=== PATIENT | male | born 1965 | race Caucasian/White ===

== ENCOUNTER → 2019-02-27 | Day surgery (SDC) | payer OTHER ==
[2019-02-25 11:36] LABS: BASOPHILS % 0.5 % (0.0-1.0); EOSINOPHILS # (AUTO) 0.4 (0.0-0.4); EOSINOPHILS % 5.6 % (0.0-6.0); HEMATOCRIT 40.9 % (38.2-49.6); LYMPHOCYTES # (AUTO) 2.5 (1.0-3.2); LYMPHOCYTES % 32.2 % (18.0-39.1); MEAN CORPUSCULAR HGB CONC 34.2 g/dL (31-35); MEAN CORPUSCULAR VOLUME 87.8 fL (81-99); MONOCYTES # (AUTO) 0.5 (0.2-0.8); NEUTROPHILS # (AUTO) 4.2 (2.1-6.9); NEUTROPHILS % 54.3 % (38.7-80.0); PLATELET COUNT 205 x10e3/uL (140-360); RED BLOOD COUNT 4.66 x10e6/uL (4.3-5.7); RED CELL DISTRIBUTION WIDTH 12.3 % (11.7-14.4)
[2019-02-25 11:57] LABS: ANION GAP 11.9 mmol/L (8-16); BLOOD UREA NITROGEN 14 mg/dL (7-26); BUN/CREATININE RATIO 18 (6-25); CARBON DIOXIDE 25 mmol/L (22-29); CHLORIDE 104 mmol/L (98-107); CREATININE, SERUM 0.77 mg/dL (0.72-1.25); EST GLOMERULAR FILTRATION RATE > 60 ML/MIN (60-); GLUCOSE 118 mg/dL (74-118); POTASSIUM 3.9 mmol/L (3.5-5.1); SODIUM 137 mmol/L (136-145)
[~2019-02-27] MED LIST: FENTANYL CITRATE/PF 100MCG/2 ML INJ ONE; LIDOCAINE HCL 2% LOCAL INJ 5 ML SDV VIAL INJ ONE; MIDAZOLAM HCL 2 MG/2 ML VIAL ONE; PROPOFOL IV EMULSION 10 MG/ML 20 ML VIAL ONE; ULTRAM 50MG50 MG PO
--- OUTSIDE RECORDS SUMMARY | 2019-02-27 05:33 | XMS REPORT | Summary of Care ---
Author Organization Unknown Address Unknown Phone Unavailable Encounter HQ Tashar_colinsudhakar([facility]) [id number] Date(s): 11/04/14 - 12/03/14 [facility] Discharge Disposition: Home Physician Attending: Guido Ch DO Vital Signs No data available for this section Problem List No data available for this section Allergies, Adverse Reactions, Alerts No data available for this section Medications No data available for this section Results No data available for this section Immunizations No data available for this section Procedures No data available for this section Social History No data available for this section Assessment and Plan No data available for this section
--- OUTSIDE RECORDS SUMMARY | 2019-02-27 05:33 | XMS REPORT | Continuity of Care Document ---
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 Role Phone [facility] Unavailable Unavailable Problems Problem Status Onset Date Classification Date Reported Comments Source UNK Active 03/08/2016 [facility] Discharge Diagnosis: Pain in right wrist 03/06/2016 03/09/2016 [facility] POST SURGERY PAIN Active 03/06/2016 [facility] Bilateral inguinal hernia Resolved Problem 07/16/2016 [facility] Bone spur Resolved Problem 07/16/2016 [facility] Partial tear of ligament1 Active Problem 07/16/2016 right wrist [facility] ANKLE Active [facility] RT HAND Active [facility] RT KNEE STIFFNESS Active [facility] Medications Medication Details Route Status Patient Instructions Ordering Provider Order Date Source Ketorolac 30 mg, Route: IVP, Q6H, Dosing Weight 94.5, kg, Start date: 03/16/16 12:00:00 CDT, Duration: 6 doses or times, Stop date: 03/17/16 18:00:00 CDT Inactive 03/16/2016 [facility] Naloxone 0.4 mg, Route: IVP, Q2MIN, Dosing Weight 94.5, kg, PRN Narcotic Reversal, Start date: 03/16/16 11:20:00 CDT, Duration: 8 doses or times, Stop date: Limited # of times Inactive 03/16/2016 [facility] Ondansetron 4 mg, Route: IVP, ONCE, Dosing Weight 94.5, kg, PRN Nausea & Vomiting, Start date: 03/16/16 11:20:00 CDT Inactive 03/16/2016 [facility] Oxycodone 5 mg, Route: PO, Drug form: TAB, Q4H, Dosing Weight 94.5, kg, PRN Pain Score 4-6, Start date: 03/16/16 11:20:00 CDT, Duration: 30 day, Stop date: 04/15/16 11:19:00 CDT Inactive 03/16/2016 [facility] Hydromorphone 0.5 mg, Route: IVP, Q5Min, Dosing Weight 94.5, kg, PRN Pain Score 7-10, Start date: 03/16/16 11:20:00 CDT, Duration: 4 doses or times, Stop date: Limited # of times Inactive 03/16/2016 [facility] Fentanyl 25 microgram, Route: IVP, Q5Min, Dosing Weight 94.5, kg, PRN Pain Score 4-6, Start date: 03/16/16 11:20:00 CDT, Duration: 4 doses or times, Stop date: Limited # of times Inactive 03/16/2016 [facility] Flumazenil 0.2 mg, Route: IVP, PRN, Dosing Weight 94.5, kg, PRN Benzodiazepine Reversal, Initial dose, Start date: 03/16/16 11:20:00 CDT, Duration: 30 day, Stop date: 04/15/16 11:19:00 CDT Inactive 03/16/2016 [facility] Labetalol 10 mg, Route: IVP, Q5Min, Dosing Weight 94.5, kg, PRN Elevated BP, Start date: 03/16/16 11:20:00 CDT, Duration: 5 doses or times, Stop date: Limited # of times Inactive 03/16/2016 [facility] Acetaminophen 1,000 mg, Route: IVPB, Drug form: INJ, ONCE, Dosing Weight 94.5, kg, PRN Pain Score 1-3, Start date: 03/16/16 11:20:00 CDT, Duration: 1 doses or times, Stop date: Limited # of times Inactive 03/16/2016 [facility] Acetaminophen 650 mg, Route: PO, Drug form: TAB, Q4H, Dosing Weight 94.5, kg, PRN Pain 1-3/Temp > 100.4 F, Start date: 03/16/16 11:16:00 CDT, Duration: 30 day, Stop date: 04/15/16 11:15:00 CDT Inactive 03/16/2016 [facility] Tramadol 50 mg, Route: PO, Drug form: TAB, Q6H, Dosing Weight 94.5, kg, PRN Pain Score 1-3, Start date: 03/16/16 11:16:00 CDT, Duration: 30 day, Stop date: 04/15/16 11:15:00 CDT Inactive 03/16/2016 [facility] Hydromorphone 0.5 mg, Route: IVP, Q3H, Dosing Weight 94.5, kg, PRN Pain Score 4-6, Start date: 03/16/16 11:16:00 CDT, Duration: 30 day, Stop date: 04/15/16 11:15:00 CDT Inactive 03/16/2016 [facility] Acetaminophen 325 MG / Hydrocodone Bitartrate 10 MG Oral Tablet 1 tab, Route: PO, Dosing Weight 94.5, kg, Q4H, PRN Pain Score 4-6, Start date: 03/16/16 11:16:00 CDT, Duration: 30 day, Stop date: 04/15/16 11:15:00 CDT Inactive 03/16/2016 [facility] ketOROLAC (ANES) IV, ONCE Inactive 03/16/2016 [facility] acetaminophen (ANES) Route: IV, Drug form: INJ, ONCE, Stop date: 03/16/16 10:45:00 CDT Inactive 03/16/2016 [facility] ondansetron (ANES) Route: IV, Drug form: INJ, ONCE, Stop date: 03/16/16 10:45:00 CDT Inactive 03/16/2016 [facility] hydromorphone (ANES) Route: IV, Drug form: INJ, ONCE, Stop date: 03/16/16 10:25:00 CDT Inactive 03/16/2016 [facility] fentaNYL (ANES) Route: IV, Drug form: INJ, ONCE, Stop date: 03/16/16 10:20:00 CDT Inactive 03/16/2016 [facility] lidocaine (ANES) Route: IV, Drug form: INJ, ONCE, Stop date: 03/16/16 10:20:00 CDT Inactive 03/16/2016 [facility] propofol (ANES) Route: IV, Drug form: INJ, ONCE, Stop date: 03/16/16 10:20:00 CDT Inactive 03/16/2016 [facility] ceFAZolin (ANES) Route: IV, Drug form: INJ, ONCE, Stop date: 03/16/16 10:20:00 CDT Inactive 03/16/2016 [facility] midazolam (ANES) Route: IV, Drug form: SOLN, ONCE, Stop date: 03/16/16 10:10:00 CDT Inactive 03/16/2016 [facility] LR 1000 mL INJ (ANES) Route: IV, Total Volume: 1,000, Start date: 03/16/16 9:38:00 CDT, Stop date: 03/16/16 10:38:00 CDT Inactive 03/16/2016 [facility] Ancef 2 gm, 100 mL, Route: IVPB, Drug form: INJ, ONCE, Dosing Weight 94.5, kg, Start date: 03/16/16 8:00:00 CDT, Duration: 1 doses or times, Stop date: 03/16/16 8:00:00 CDTNotes: Same as: Ancef Inactive 03/16/2016 [facility] Calcium Chloride 0.0014 MEQ/ML / Potassium Chloride 0.004 MEQ/ML / Sodium Chloride 0.103 MEQ/ML / Sodium Lactate 0.028 MEQ/ML Injectable Solution 1,000 mL, Rate: 25 ml/hr, Infuse over: 40 hr, Route: IV, Dosing Weight 94.5 kg, Total Volume: 1,000, Start date: 03/16/16 7:58:00 CDT, Duration: 30 day, Stop date: 04/15/16 7:57:00 CDT Inactive 03/16/2016 [facility] Diazepam 5 MG Oral Tablet [Valium] 5 mg=1 tab, PO, QID, PRN Spasm, # 30 tab, 0 Refill(s) Active 03/16/2016 [facility] Cephalexin 500 MG Oral Capsule [Keflex] 500 mg=1 cap, PO, QID, X 10 day, # 40 cap, 0 Refill(s) Active 03/16/2016 [facility] Acetaminophen 325 MG / Hydrocodone Bitartrate 7.5 MG Oral Tablet [[place] 7.5/325] 1 tab, PO, Q6H, 0 Refill(s) Active 03/09/2016 [facility] Ketorolac Tromethamine 10 MG Oral Tablet 10 mg=1 tab, PO, Q6H, X 5 day, # 20 tab, 0 Refill(s) Active 03/06/2016 [facility] Morphine 6 mg, Route: IM, Drug form: INJ, ONCE, Dosing Weight 92.727, kg, Priority: STAT, Start date: 03/06/16 6:16:00 CDT, Stop date: 03/06/16 6:16:00 CDT Inactive 03/06/2016 [facility] Ketorolac 30 mg, Route: IM, Drug form: INJ, ONCE, Dosing Weight 92.727, kg, Priority: STAT, Start date: 03/06/16 6:15:00 CDT, Stop date: 03/06/16 6:15:00 CDT Inactive 03/06/2016 [facility] Morphine 4 mg, Route: IM, Drug form: INJ, ONCE, Dosing Weight 92.727, kg, Priority: STAT, Start date: 03/06/16 6:09:00 CDT, Stop date: 03/06/16 6:09:00 CDT Inactive 03/06/2016 [facility] Morphine 4 mg, Route: IM, Drug form: INJ, ONCE, Dosing Weight 92.727, kg, Priority: STAT, Start date: 03/06/16 4:11:00 CDT, Stop date: 03/06/16 4:11:00 CDT Inactive 03/06/2016 [facility] Ketorolac 30 mg, Route: IVP, Q6H, Dosing Weight 96.364, kg, Start date: 02/11/16 12:00:00 CDT, Duration: 6 doses or times, Stop date: 02/12/16 18:00:00 CDT Inactive 02/11/2016 [facility] Eszopiclone 3 MG Oral Tablet [Lunesta] 3 mg=1 tab, PO, Bedtime, PRN for insomnia, # 30 tab, 0 Refill(s) Active 02/11/2016 [facility] Diazepam 5 MG Oral Tablet [Valium] 5 mg=1 tab, PO, QID, PRN Spasm, # 30 tab, 0 Refill(s) Active 02/11/2016 [facility] tramadol hydrochloride 50 MG Oral Tablet [Ultram] 50 mg=1 tab, PO, Q4H, PRN for pain, X 10 day, # 60 tab, 0 Refill(s) Active 02/11/2016 [facility] Ondansetron 4 mg, Route: IVP, ONCE, Dosing Weight 96.364, kg, PRN Nausea & Vomiting, Start date: 02/11/16 8:29:00 CDT Inactive 02/11/2016 [facility] Flumazenil 0.2 mg, Route: IVP, PRN, Dosing Weight 96.364, kg, PRN Benzodiazepine Reversal, Initial dose, Start date: 02/11/16 8:29:00 CDT, Duration: 30 day, Stop date: 03/12/16 8:28:00 CDT Inactive 02/11/2016 [facility] Naloxone 0.4 mg, Route: IVP, Q2MIN, Dosing Weight 96.364, kg, PRN Narcotic Reversal, Start date: 02/11/16 8:29:00 CDT, Duration: 8 doses or times, Stop date: Limited # of times Inactive 02/11/2016 [facility] Fentanyl 25 microgram, Route: IVP, Q5Min, Dosing Weight 96.364, kg, PRN Pain Score 4-6, Start date: 02/11/16 8:29:00 CDT, Duration: 4 doses or times, Stop date: Limited # of times Inactive 02/11/2016 [facility] Hydromorphone 0.5 mg, Route: IVP, Q5Min, Dosing Weight 96.364, kg, PRN Pain Score 7-10, Start date: 02/11/16 8:29:00 CDT, Duration: 4 doses or times, Stop date: Limited # of times Inactive 02/11/2016 [facility] Oxycodone 10 mg, Route: PO, Drug form: TAB, Q4H, Dosing Weight 96.364, kg, PRN Pain Score 7-10, Start date: 02/11/16 8:29:00 CDT, Duration: 30 day, Stop date: 03/12/16 8:28:00 CDT Inactive 02/11/2016 [facility] Acetaminophen 1,000 mg, Route: IVPB, Drug form: INJ, ONCE, Dosing Weight 96.364, kg, PRN Pain Score 1-3, Start date: 02/11/16 8:29:00 CDT, Duration: 1 doses or times, Stop date: Limited # of times Inactive 02/11/2016 [facility] Labetalol 10 mg, Route: IVP, Q5Min, Dosing Weight 96.364, kg, PRN Elevated BP, Start date: 02/11/16 8:29:00 CDT, Duration: 5 doses or times, Stop date: Limited # of times Inactive 02/11/2016 [facility] Tramadol 50 mg, Route: PO, Drug form: TAB, Q6H, Dosing Weight 96.364, kg, PRN Pain Score 1-3, Start date: 02/11/16 8:18:00 CDT, Duration: 30 day, Stop date: 03/12/16 8:17:00 CDT Inactive 02/11/2016 [facility] Acetaminophen 650 mg, Route: PO, Drug form: TAB, Q4H, Dosing Weight 96.364, kg, PRN Pain 1-3/Temp > 100.4 F, Start date: 02/11/16 8:18:00 CDT, Duration: 30 day, Stop date: 03/12/16 8:17:00 CDT Inactive 02/11/2016 [facility] Hydromorphone 0.5 mg, Route: IVP, Q3H, Dosing Weight 96.364, kg, PRN Pain Score 4-6, Start date: 02/11/16 8:18:00 CDT, Duration: 30 day, Stop date: 03/12/16 8:17:00 CDT Inactive 02/11/2016 [facility] Acetaminophen 325 MG / Hydrocodone Bitartrate 10 MG Oral Tablet 1 tab, Route: PO, Dosing Weight 96.364, kg, Q4H, PRN Pain Score 4-6, Start date: 02/11/16 8:18:00 CDT, Duration: 30 day, Stop date: 03/12/16 8:17:00 CDT Inactive 02/11/2016 [facility] fentaNYL (ANES) Route: IV, Drug form: INJ, ONCE, Stop date: 02/11/16 8:15:00 CDT Inactive 02/11/2016 [facility] propofol (ANES) Route: IV, Drug form: INJ, ONCE, Stop date: 02/11/16 8:00:00 CDT Inactive 02/11/2016 [facility] lidocaine (ANES) Route: IV, Drug form: INJ, ONCE, Stop date: 02/11/16 8:00:00 CDT Inactive 02/11/2016 [facility] ceFAZolin (ANES) Route: IV, Drug form: INJ, ONCE, Stop date: 02/11/16 8:00:00 CDT Inactive 02/11/2016 [facility] ondansetron (ANES) Route: IV, Drug form: INJ, ONCE, Stop date: 02/11/16 8:00:00 CDT Inactive 02/11/2016 [facility] Ancef 2 gm, Route: IVPB, ONCALL, Dosing Weight 96.364, kg, Start date: 02/11/16 8:00:00 CDT, Duration: 30 day, Stop date: 03/12/16 7:59:00 CDT Inactive 02/11/2016 [facility] ropivacaine (ANES) Route: NERVE BLOCK, Drug Form: INJ, ONCE, Stop date: 02/11/16 7:55:00 CDT Inactive 02/11/2016 [facility] LR 1000 mL INJ (ANES) Route: IV, Total Volume: 1,000, Start date: 02/11/16 7:13:00 CDT, Stop date: 02/11/16 8:13:00 CDT Inactive 02/11/2016 [facility] Calcium Chloride 0.0014 MEQ/ML / Potassium Chloride 0.004 MEQ/ML / Sodium Chloride 0.103 MEQ/ML / Sodium Lactate 0.028 MEQ/ML Injectable Solution 1,000 mL, Rate: 25 ml/hr, Infuse over: 40 hr, Route: IV, Dosing Weight 96.364 kg, Total Volume: 1,000, Start date: 02/11/16 7:05:00 CDT, Duration: 30 day, Stop date: 03/12/16 7:04:00 CDT Inactive 02/11/2016 [facility] Cephalexin 500 MG Oral Capsule [Keflex] 500 mg=1 cap, PO, QID, X 10 day, # 40 cap, 0 Refill(s) Active 02/11/2016 [facility] Allergies, Adverse Reactions, Alerts No Known Medication Allergies Immunizations No Data Provided for This Section Results Order Name Results Value Reference Range Date Interpretation Comments Source HEMATOLOGY Platelet 202 133 - 450 03/09/2016 [facility] HEMATOLOGY RDW 12.5 11.5 - 14.5 03/09/2016 [facility] HEMATOLOGY MPV 8.4 7.4 - 10.4 03/09/2016 [facility] HEMATOLOGY MCHC 33.8 32.0 - 36.0 03/09/2016 [facility] HEMATOLOGY MCH 30.0 27.0 - 31.0 03/09/2016 [facility] HEMATOLOGY MCV 88.7 80.0 - 94.0 03/09/2016 [facility] HEMATOLOGY RBC 4.64 4.70 - 6.10 03/09/2016 [facility] HEMATOLOGY Hct 41.2 42.0 - 54.0 03/09/2016 [facility] HEMATOLOGY Hgb 13.9 14.0 - 18.0 03/09/2016 [facility] HEMATOLOGY WBC 6.8 3.7 - 10.4 03/09/2016 [facility] HEMATOLOGY Lymphocytes 24.5 20.0 - 40.0 03/09/2016 [facility] HEMATOLOGY Segs 63.9 45.0 - 75.0 03/09/2016 [facility] HEMATOLOGY Basophils # 0.1 0.0 - 0.2 03/09/2016 [facility] HEMATOLOGY Eosinophils # 0.4 0.0 - 0.5 03/09/2016 [facility] HEMATOLOGY Monocytes # 0.4 0.0 - 0.8 03/09/2016 [facility] HEMATOLOGY Lymphocytes # 1.7 1.0 - 5.5 03/09/2016 [facility] HEMATOLOGY Segs-Bands # 4.4 1.5 - 8.1 03/09/2016 [facility] HEMATOLOGY Basophils 0.8 0.0 - 1.0 03/09/2016 [facility] HEMATOLOGY Eosinophils 5.4 0.0 - 4.0 03/09/2016 [facility] HEMATOLOGY Monocytes 5.4 2.0 - 12.0 03/09/2016 [facility] HEMATOLOGY MPV 8.3 7.4 - 10.4 02/04/2016 [facility] HEMATOLOGY Hgb 16.1 14.0 - 18.0 02/04/2016 [facility] HEMATOLOGY RBC 5.41 4.70 - 6.10 02/04/2016 [facility] HEMATOLOGY Hct 48.3 42.0 - 54.0 02/04/2016 [facility] HEMATOLOGY MCH 29.7 27.0 - 31.0 02/04/2016 [facility] HEMATOLOGY MCV 89.4 80.0 - 94.0 02/04/2016 [facility] HEMATOLOGY Platelet 206 133 - 450 02/04/2016 [facility] HEMATOLOGY RDW 12.9 11.5 - 14.5 02/04/2016 [facility] HEMATOLOGY MCHC 33.2 32.0 - 36.0 02/04/2016 [facility] HEMATOLOGY WBC 9.2 3.7 - 10.4 02/04/2016 [facility] HEMATOLOGY Monocytes # 0.5 0.0 - 0.8 02/04/2016 [facility] HEMATOLOGY Lymphocytes # 2.5 1.0 - 5.5 02/04/2016 [facility] HEMATOLOGY Eosinophils 2.5 0.0 - 4.0 02/04/2016 [facility] Segs-Bands # 5.9 1.5 - 8.1 02/04/2016 [facility] HEMATOLOGY Basophils 0.6 0.0 - 1.0 02/04/2016 [facility] HEMATOLOGY Monocytes 5.4 2.0 - 12.0 02/04/2016 [facility] HEMATOLOGY Lymphocytes 27.5 20.0 - 40.0 02/04/2016 [facility] Segs 64.0 45.0 - 75.0 02/04/2016 [facility] Basophils # 0.1 0.0 - 0.2 02/04/2016 [facility] HEMATOLOGY Eosinophils # 0.2 0.0 - 0.5 02/04/2016 [facility] Pathology Reports No Data Provided for This Section Diagnostic Reports Report Value Date Source Wrist complete DX Patient Name: FUNMILAYO EDWARDS : 1965; Age: 50 years y/o Male MR: [id number] * RIGHT WRIST, 3 views HISTORY: Right Wrist Pain of Unknown Origin; Technique: Frontal, oblique, and lateral radiographs of the right wrist were obtained. Intraoperative images of the right wrist of 02/11/2016 were reviewed. IMPRESSION: 1. The patient had a pin placed across the scaphoid and lunate on 02/11/2016. 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 The procedure was performed by Dr. Guido Ch. 2. There appears to be a change from the postoperative study as the tip of the pin previously was in the lower portion of the scaphoid bone. The tip of the pin now lies immediately adjacent to the proximal scaphoid bone. Apparently, the pin has backed out. 3. There is a relatively large gap between the scaphoid and lunate consistent with ligamentous instability. This has increased from the postoperative study. 4. No acute fracture or other acute abnormalities. 5. There are no destructive lesions to suggest osteomyelitis. 6. Referral to the treating orthopedic surgeon is highly recommended. ELY: MISSAEL 03/06/2016 [facility] Wrist 2 views DX Intraoperative C-arm spots of the right wrist with stress views show widening of the scaphoradial and scapholunate joints during ulnar stress. Pin fixation of the scapholunate joint is demonstrated on the final images. ELY [id number] 02/11/2016 [facility] Consultation Notes No Data Provided for This Section Discharge Summaries No Data Provided for This Section History and Physicals No Data Provided for This Section Vital Signs Vital Sign Value Date Comments Source Systolic (mm Hg) 124 03/16/2016 [facility] Diastolic (mm Hg) 74 03/16/2016 [facility] Respitory Rate 12 03/16/2016 [facility] Respitory Rate 11 03/16/2016 [facility] Systolic (mm Hg) 129 03/16/2016 [facility] Diastolic (mm Hg) 81 03/16/2016 [facility] Respitory Rate 11 03/16/2016 [facility] Systolic (mm Hg) 124 03/16/2016 [facility] Diastolic (mm Hg) 86 03/16/2016 [facility] Heart Rate 79 03/09/2016 [facility] Temperature Oral (F) 98.1 F 03/09/2016 [facility] BMI Calculated 28.26 03/09/2016 [facility] Weight 94.5 03/09/2016 [facility] Height 182.88 cm 03/09/2016 [facility] Respitory Rate 19 03/06/2016 [facility] Temperature Oral (F) 98 F 03/06/2016 [facility] Systolic (mm Hg) 125 03/06/2016 [facility] Diastolic (mm Hg) 72 03/06/2016 [facility] Heart Rate 85 03/06/2016 [facility] Heart Rate 78 03/06/2016 [facility] Temperature Oral (F) 98 F 03/06/2016 [facility] Systolic (mm Hg) 107 03/06/2016 [facility] Diastolic (mm Hg) 66 03/06/2016 [facility] Respitory Rate 18 03/06/2016 [facility] Temperature Oral (F) 98 F 03/06/2016 [facility] Heart Rate 87 03/06/2016 [facility] Respitory Rate 19 03/06/2016 [facility] Systolic (mm Hg) 132 03/06/2016 [facility] Diastolic (mm Hg) 80 03/06/2016 [facility] Weight 92.727 03/06/2016 [facility] Height 182.88 cm 03/06/2016 [facility] BMI Calculated 27.73 03/06/2016 [facility] Systolic (mm Hg) 135 02/11/2016 [facility] Diastolic (mm Hg) 64 02/11/2016 [facility] Systolic (mm Hg) 135 02/11/2016 [facility] Diastolic (mm Hg) 77 02/11/2016 [facility] Respitory Rate 14 02/11/2016 [facility] Systolic (mm Hg) 138 02/11/2016 [facility] Diastolic (mm Hg) 97 02/11/2016 [facility] Respitory Rate 13 02/11/2016 [facility] Respitory Rate 15 02/11/2016 [facility] Temperature Oral (F) 97.7 F 02/04/2016 [facility] Heart Rate 66 02/04/2016 [facility] Height 182.88 cm 02/04/2016 [facility] BMI Calculated 28.81 02/04/2016 [facility] Weight 96.364 02/04/2016 [facility] Encounters Location Location Details Encounter Type Encounter Number Reason For Visit Attending Provider ADM Date DC Date Status Source [facility] OP Therapy Patients [id number] Guido Ch 11/04/2014 12/04/2014 [facility] OBS Day Surgery [id number] Guido Ch 02/11/2016 02/11/2016 [facility] [id number] Darlin Zhang 03/06/2016 03/06/2016 [facility] OBS Day Surgery [id number] Guido Ch 03/16/2016 03/16/2016 [facility] OP Therapy Patients [id number] Guido Ch 05/12/2016 06/11/2016 [facility] OP Therapy Patients [id number] Guido Ch 06/14/2016 07/14/2016 [facility] Procedures Procedure Code Date Perfomer Comments Source Arthroscopy of knee [id number] [facility] Fasciotomy foot<sup>1</sup> [id number] with bone spur excision [facility] Laparoscopic bilateral repair of inguinal hernia with prosthesis or graft [id number] [facility] Arthroscopy of knee [id number] [facility] Discharge from hand surgery service [id number] [facility] Fasciotomy foot<sup>1</sup> [id number] with bone spur excision [facility] Laparoscopic bilateral repair of inguinal hernia with prosthesis or graft [id number] [facility] Discharge from hand surgery service [id number] [facility] Assessment and Plan No Data Provided for This Section Plan of Care No Data Provided for This Section Social History Social History Date Source Social History TypeResponse Alcohol Current1 Smoking Status Former smoker; Exposure to Tobacco Smoke None; Cigarette Smoking Last 365 Days No; Reg Smoking Cessation Counseling No 1rare 02/04/2016 [facility] Social History TypeResponse Alcohol Current1 Smoking Status Former smoker; Exposure to Tobacco Smoke None; Cigarette Smoking Last 365 Days No; Reg Smoking Cessation Counseling No 1rare 02/04/2016 [facility] Family History No Data Provided for This Section Advance Directives No Data Provided for This Section Functional Status No Data Provided for This Section
--- OUTSIDE RECORDS SUMMARY | 2019-02-27 05:34 | XMS REPORT | Summary of Care ---
Author Author [facility] Unknown Phone Unavailable Encounter HQ Junaid_jenaro(FIN) [id number] Date(s): 06/14/16 - 07/13/16 [facility] Discharge Disposition: Home or Self Care Attending Physician: Guido Ch Vital Signs No data available for this section Problem List Condition Effective Dates Status Health Status Informant Bilateral inguinal Resolved hernia(Confirmed) Bone spur(Confirmed) Resolved Partial tear of Active ligament(Confirmed)1 1right wrist Allergies, Adverse Reactions, Alerts Substance Reaction Severity Status NKDA Active Medications No data available for this section Results No data available for this section Immunizations No data available for this section Procedures Procedure Date Related Diagnosis Body Site Arthroscopy of knee Discharge from hand surgery service Fasciotomy foot1 Laparoscopic bilateral repair of inguinal hernia with prosthesis or graft 1with bone spur excision Social History Social History Type Response Alcohol Current1 Smoking Status Former smoker; Exposure to Tobacco Smoke None; Cigarette Smoking Last 365 Days No; Reg Smoking Cessation Counseling No 1rare Assessment and Plan No data available for this section
--- OUTSIDE RECORDS SUMMARY | 2019-02-27 05:34 | XMS REPORT | Summary of Care ---
Author Author [facility] Organization [facility] Address Unknown Phone Unavailable Encounter HQ Riddhi(INÉS) [id number] Date(s): 03/06/16 - 03/06/16 [facility] [address] [place] [address]- Discharge Diagnosis: Pain in right wrist Discharge Disposition: Home Attending Physician: Darlin Zhang DO Vital Signs 1 2 3 Most recent to oldest [Reference Range]: 182.88 cm (03/06/16 3:29 AM) Height 98 DegF (03/06/16 6:27 AM) 98 DegF (03/06/16 5:30 AM) 98 DegF (03/06/16 4:30 AM) Temperature Oral [96.4-99.1 DegF] 125/72 mmHg (03/06/16 6:27 AM) 107/66 mmHg (03/06/16 5:30 AM) 132/80 mmHg (03/06/16 4:30 AM) Blood Pressure [90-140/60-90 mmHg] 19 BRMIN (03/06/16 6:27 AM) 18 BRMIN (03/06/16 5:30 AM) 19 BRMIN (03/06/16 4:30 AM) Respiratory Rate [14-20 BRMIN] 85 bpm (03/06/16 6:27 AM) 78 bpm (03/06/16 5:30 AM) 87 bpm (03/06/16 4:30 AM) Peripheral Pulse Rate [60-100 bpm] 92.727 kg (03/06/16 3:29 AM) Weight 27.73 m2 (03/06/16 3:29 AM) Body Mass Index Problem List Condition Effective Dates Status Health Status Informant Partial tear of Active ligament(Confirmed)1 1right wrist Allergies, Adverse Reactions, Alerts Substance Reaction Severity Status NKDA Active Medications ketOROLAC 30 mg, Route: IM, Drug form: INJ, ONCE, Dosing Weight 92.727, kg, Priority: STAT , Start date: 03/06/16 6:15:00 CDT, Stop date: 03/06/16 6:15:00 CDT Start Date: 03/06/16 Stop Date: 03/06/16 Status: Completed ketOROLAC 10 mg oral tablet 10 mg=1 tab, PO, Q6H, X 5 day, # 20 tab, 0 Refill(s) Start Date: 03/06/16 Stop Date: 03/11/16 Status: Ordered morphine Sulfate 4 mg, Route: IM, Drug form: INJ, ONCE, Dosing Weight 92.727, kg, Priority: STAT, Start date: 03/06/16 6:09:00 CDT, Stop date: 03/06/16 6:09:00 CDT Start Date: 03/06/16 Stop Date: 03/06/16 Status: Completed morphine Sulfate 6 mg, Route: IM, Drug form: INJ, ONCE, Dosing Weight 92.727, kg, Priority: STAT, Start date: 03/06/16 6:16:00 CDT, Stop date: 03/06/16 6:16:00 CDT Start Date: 03/06/16 Stop Date: 03/06/16 Status: Completed morphine Sulfate 4 mg, Route: IM, Drug form: INJ, ONCE, Dosing Weight 92.727, kg, Priority: STAT, Start date: 03/06/16 4:11:00 CDT, Stop date: 03/06/16 4:11:00 CDT Start Date: 03/06/16 Stop Date: 03/06/16 Status: Completed Results No data available for this section Immunizations No data available for this section Procedures Procedure Date Related Diagnosis Body Site Arthroscopy of knee Fasciotomy foot1 Laparoscopic bilateral repair of inguinal hernia with prosthesis or graft 1with bone spur excision Social History Social History Type Response Alcohol Current1 Smoking Status Former smoker; Exposure to Tobacco Smoke None; Cigarette Smoking Last 365 Days No; Reg Smoking Cessation Counseling No 1rare Assessment and Plan No data available for this section
--- OUTSIDE RECORDS SUMMARY | 2019-02-27 05:34 | XMS REPORT | Summary of Care ---
Author Author [facility] Organization [facility] Address Unknown Phone Unavailable Encounter HQ Riddhi(INÉS) [id number] Date(s): 02/11/16 - 02/11/16 [facility] [address] [place] [address]- Discharge Disposition: Home Attending Physician: Guido Ch Referring Physician: Guido Ch Vital Signs Most recent to 1 2 3 4 oldest [Reference Range]: Height 182.88 cm (02/04/16 2:07 PM) Temperature Oral 97.7 DegF [96.4-99.1 DegF] (02/04/16 2:13 PM) Blood Pressure 135/64 mmHg 135/77 mmHg 138/97 mmHg 145/68 mmHg [90-140/60-90 mmHg] (02/11/16 10:45 AM) (02/11/16 9:45 AM) (02/11/16 9:00 AM) *HI* (02/11/16 9:00 AM) Respiratory Rate 14 BRMIN 13 BRMIN 15 BRMIN [14-20 BRMIN] (02/11/16 9:00 AM) *LOW* (02/11/16 8:30 AM) (02/11/16 8:45 AM) Peripheral Pulse 66 bpm Rate [60-100 bpm] (02/04/16 2:13 PM) Weight 96.364 kg (02/04/16 2:07 PM) Body Mass Index 28.81 m2 (02/04/16 2:07 PM) Problem List Condition Effective Dates Status Health Status Informant Partial tear of Active ligament(Confirmed)1 1right wrist Allergies, Adverse Reactions, Alerts Substance Reaction Severity Status NKDA Active Medications acetaminophen 650 mg, Route: PO, Drug form: TAB, Q4H, Dosing Weight 96.364, kg, PRN Pain 1-3/T emp > 100.4 F, Start date: 02/11/16 8:18:00 CDT, Duration: 30 day, Stop date: 03/12/16 8:17:00 CDT Start Date: 02/11/16 Stop Date: 02/11/16 Status: Discontinued acetaminophen-hydrocodone 325 mg-10 mg oral tablet 1 tab, Route: PO, Dosing Weight 96.364, kg, Q4H, PRN Pain Score 4-6, Start date: 02/11/16 8:18:00 CDT, Duration: 30 day, Stop date: 03/12/16 8:17:00 CDT Start Date: 02/11/16 Stop Date: 02/11/16 Status: Discontinued Ancef 2 gm, Route: IVPB, ONCALL, Dosing Weight 96.364, kg, Start date: 02/11/16 8:00:0 0 CDT, Duration: 30 day, Stop date: 03/12/16 7:59:00 CDT Start Date: 02/11/16 Stop Date: 02/11/16 Status: Discontinued ANES acetaminophen 1,000 mg, Route: IVPB, Drug form: INJ, ONCE, Dosing Weight 96.364, kg, PRN Pain Score 1-3, Start date: 02/11/16 8:29:00 CDT, Duration: 1 doses or times, Stop da te: Limited # of times Start Date: 02/11/16 Stop Date: 02/11/16 Status: Discontinued ANES fentaNYL 25 microgram, Route: IVP, Q5Min, Dosing Weight 96.364, kg, PRN Pain Score 4-6, S tart date: 02/11/16 8:29:00 CDT, Duration: 4 doses or times, Stop date: Limited # of times Start Date: 02/11/16 Stop Date: 02/11/16 Status: Discontinued ANES fentaNYL 50 microgram, Route: IVP, Q5Min, Dosing Weight 96.364, kg, PRN Pain Score 7-10, Start date: 02/11/16 8:29:00 CDT, Duration: 2 doses or times, Stop date: Limited # of times Start Date: 02/11/16 Stop Date: 02/11/16 Status: Completed ANES flumazenil 0.2 mg, Route: IVP, PRN, Dosing Weight 96.364, kg, PRN Benzodiazepine Reversal, Initial dose, Start date: 02/11/16 8:29:00 CDT, Duration: 30 day, Stop date: 8:28:00 CDT Start Date: 02/11/16 Stop Date: 02/11/16 Status: Discontinued ANES HYDROmorphone 0.5 mg, Route: IVP, Q5Min, Dosing Weight 96.364, kg, PRN Pain Score 7-10, Start date: 02/11/16 8:29:00 CDT, Duration: 4 doses or times, Stop date: Limited # of times Start Date: 02/11/16 Stop Date: 02/11/16 Status: Discontinued ANES labetalol 10 mg, Route: IVP, Q5Min, Dosing Weight 96.364, kg, PRN Elevated BP, Start date: 02/11/16 8:29:00 CDT, Duration: 5 doses or times, Stop date: Limited # of times Start Date: 02/11/16 Stop Date: 02/11/16 Status: Discontinued ANES naloxone 0.4 mg, Route: IVP, Q2MIN, Dosing Weight 96.364, kg, PRN Narcotic Reversal, Star t date: 02/11/16 8:29:00 CDT, Duration: 8 doses or times, Stop date: Limited # o f times Start Date: 02/11/16 Stop Date: 02/11/16 Status: Discontinued ANES ondansetron 4 mg, Route: IVP, ONCE, Dosing Weight 96.364, kg, PRN Nausea & Vomiting, Start date: 02/11/16 8:29:00 CDT Start Date: 02/11/16 Stop Date: 02/11/16 Status: Discontinued ANES oxyCODONE 10 mg, Route: PO, Drug form: TAB, Q4H, Dosing Weight 96.364, kg, PRN Pain Score 7-10, Start date: 02/11/16 8:29:00 CDT, Duration: 30 day, Stop date: 03/12/16 8: 28:00 CDT Start Date: 02/11/16 Stop Date: 02/11/16 Status: Discontinued ANES oxyCODONE 5 mg, Route: PO, Drug form: TAB, Q4H, Dosing Weight 96.364, kg, PRN Pain Score 4 -6, Start date: 02/11/16 8:29:00 CDT, Duration: 30 day, Stop date: 03/12/16 8:28 :00 CDT Start Date: 02/11/16 Stop Date: 02/11/16 Status: Discontinued ceFAZolin (ANES) Route: IV, Drug form: INJ, ONCE, Stop date: 02/11/16 8:00:00 CDT Start Date: 02/11/16 Stop Date: 02/11/16 Status: Completed fentaNYL (ANES) Route: IV, Drug form: INJ, ONCE, Stop date: 02/11/16 8:15:00 CDT Start Date: 02/11/16 Stop Date: 02/11/16 Status: Completed hydromorphone 0.5 mg, Route: IVP, Q3H, Dosing Weight 96.364, kg, PRN Pain Score 4-6, Start thi e: 02/11/16 8:18:00 CDT, Duration: 30 day, Stop date: 03/12/16 8:17:00 CDT Start Date: 02/11/16 Stop Date: 02/11/16 Status: Discontinued Keflex 500 mg oral capsule 500 mg=1 cap, PO, QID, X 10 day, # 40 cap, 0 Refill(s) Start Date: 02/10/16 Stop Date: 02/20/16 Status: Ordered ketOROLAC 30 mg, Route: IVP, Q6H, Dosing Weight 96.364, kg, Start date: 02/11/16 12:00:00 CDT, Duration: 6 doses or times, Stop date: 02/12/16 18:00:00 CDT Start Date: 02/11/16 Stop Date: 02/11/16 Status: Discontinued Lactated Ringers Injection IV 1000 mL 1,000 mL, Rate: 25 ml/hr, Infuse over: 40 hr, Route: IV, Dosing Weight 96.364 kg , Total Volume: 1,000, Start date: 02/11/16 7:05:00 CDT, Duration: 30 day, Stop date: 03/12/16 7:04:00 CDT Start Date: 02/11/16 Stop Date: 02/11/16 Status: Discontinued lidocaine (ANES) Route: IV, Drug form: INJ, ONCE, Stop date: 02/11/16 8:00:00 CDT Start Date: 02/11/16 Stop Date: 02/11/16 Status: Completed LR 1000 mL INJ (ANES) Route: IV, Total Volume: 1,000, Start date: 02/11/16 7:13:00 CDT, Stop date: 8:13:00 CDT Start Date: 02/11/16 Stop Date: 02/11/16 Status: Completed Lunesta 3 mg oral tablet 3 mg=1 tab, PO, Bedtime, PRN for insomnia, # 30 tab, 0 Refill(s) Start Date: 02/11/16 Stop Date: 03/12/16 Status: Ordered ondansetron (ANES) Route: IV, Drug form: INJ, ONCE, Stop date: 02/11/16 8:00:00 CDT Start Date: 02/11/16 Stop Date: 02/11/16 Status: Completed propofol (ANES) Route: IV, Drug form: INJ, ONCE, Stop date: 02/11/16 8:00:00 CDT Start Date: 02/11/16 Stop Date: 02/11/16 Status: Completed ropivacaine (ANES) Route: NERVE BLOCK, Drug Form: INJ, ONCE, Stop date: 02/11/16 7:55:00 CDT Start Date: 02/11/16 Stop Date: 02/11/16 Status: Completed tramadol 50 mg, Route: PO, Drug form: TAB, Q6H, Dosing Weight 96.364, kg, PRN Pain Score 1-3, Start date: 02/11/16 8:18:00 CDT, Duration: 30 day, Stop date: 03/12/16 8:1 7:00 CDT Start Date: 02/11/16 Stop Date: 02/11/16 Status: Discontinued Ultram 50 mg oral tablet 50 mg=1 tab, PO, Q4H, PRN for pain, X 10 day, # 60 tab, 0 Refill(s) Start Date: 02/11/16 Stop Date: 02/21/16 Status: Ordered Valium 5 mg oral tablet 5 mg=1 tab, PO, QID, PRN Spasm, # 30 tab, 0 Refill(s) Start Date: 02/11/16 Stop Date: 03/12/16 Status: Ordered Results HEMATOLOGY Most recent to 1 oldest [Reference Range]: WBC [3.7-10.4 K/CMM] 9.2 K/CMM (02/04/16 2:20 PM) RBC [4.70-6.10 5.41 M/CMM M/CMM] (02/04/16 2:20 PM) Hgb [14.0-18.0 g/dL] 16.1 g/dL (02/04/16 2:20 PM) Hct [42.0-54.0 %] 48.3 % (02/04/16 2:20 PM) MCV [80.0-94.0 fL] 89.4 fL (02/04/16 2:20 PM) MCH [27.0-31.0 pg] 29.7 pg (02/04/16 2:20 PM) MCHC [32.0-36.0 33.2 g/dL g/dL] (02/04/16 2:20 PM) RDW [11.5-14.5 %] 12.9 % (02/04/16 2:20 PM) Platelet [133-450 206 K/CMM K/CMM] (02/04/16 2:20 PM) MPV [7.4-10.4 fL] 8.3 fL (02/04/16 2:20 PM) Segs [45.0-75.0 %] 64.0 % (02/04/16 2:20 PM) Lymphocytes 27.5 % [20.0-40.0 %] (02/04/16 2:20 PM) Monocytes [2.0-12.0 5.4 % %] (02/04/16 2:20 PM) Eosinophils [0.0-4.0 2.5 % %] (02/04/16 2:20 PM) Basophils [0.0-1.0 0.6 % %] (02/04/16 2:20 PM) Segs-Bands # 5.9 K/CMM [1.5-8.1 K/CMM] (02/04/16 2:20 PM) Lymphocytes # 2.5 K/CMM [1.0-5.5 K/CMM] (02/04/16 2:20 PM) Monocytes # [0.0-0.8 0.5 K/CMM K/CMM] (02/04/16 2:20 PM) Eosinophils # 0.2 K/CMM [0.0-0.5 K/CMM] (02/04/16 2:20 PM) Basophils # [0.0-0.2 0.1 K/CMM K/CMM] (02/04/16 2:20 PM) Immunizations No data available for this section [...]
--- OUTSIDE RECORDS SUMMARY | 2019-02-27 05:34 | XMS REPORT | Summary of Care ---
Author Author [facility] Unknown Phone Unavailable Encounter HQ Junaid_jenaro(FIN) [id number] Date(s): 05/12/16 - 06/10/16 [facility] Discharge Disposition: Home or Self Care Attending [...]
--- OUTSIDE RECORDS SUMMARY | 2019-02-27 05:34 | XMS REPORT | Summary of Care ---
Author Author [facility] Organization [facility] Address Unknown Phone Unavailable Encounter KUMAR Hannon(INÉS) [id number] Date(s): 03/16/16 - 03/16/16 [facility] [address] [place] [address]- [phone] Discharge Disposition: Home or Self Care Attending Physician: Guido Ch Referring Physician: Guido Ch Vital Signs 1 2 3 Most recent to oldest [Reference Range]: 182.88 cm (03/09/16 8:52 AM) Height 98.1 DegF (03/09/16 9:14 AM) Temperature Oral [96.4-99.1 DegF] 124/74 mmHg (03/16/16 12:30 PM) 129/81 mmHg (03/16/16 12:00 PM) 124/86 mmHg (03/16/16 11:45 AM) Blood Pressure [90-140/60-90 mmHg] 12 BRMIN *LOW* (03/16/16 12:30 PM) 11 BRMIN *LOW* (03/16/16 12:00 PM) 11 BRMIN *LOW* (03/16/16 11:45 AM) Respiratory Rate [14-20 BRMIN] 79 bpm (03/09/16 9:14 AM) Peripheral Pulse Rate [60-100 bpm] 94.5 kg (03/09/16 8:52 AM) Weight 28.26 m2 (03/09/16 8:52 AM) Body Mass Index Problem List Condition Effective Dates Status Health Status Informant Bilateral inguinal Resolved hernia(Confirmed) Bone spur(Confirmed) Resolved Partial tear of Active ligament(Confirmed)1 1right wrist Allergies, Adverse Reactions, Alerts Substance Reaction Severity Status NKDA Active Medications acetaminophen 650 mg, Route: PO, Drug form: TAB, Q4H, Dosing Weight 94.5, kg, PRN Pain 1-3/Tem p > 100.4 F, Start date: 03/16/16 11:16:00 CDT, Duration: 30 day, Stop date: 04/15/16 11:15:00 CDT Start Date: 03/16/16 Stop Date: 03/16/16 Status: Discontinued acetaminophen (ANES) Route: IV, Drug form: INJ, ONCE, Stop date: 03/16/16 10:45:00 CDT Start Date: 03/16/16 Stop Date: 03/16/16 Status: Completed acetaminophen-hydrocodone 325 mg-10 mg oral tablet 1 tab, Route: PO, Dosing Weight 94.5, kg, Q4H, PRN Pain Score 4-6, Start date: 0 03/16/16 11:16:00 CDT, Duration: 30 day, Stop date: 04/15/16 11:15:00 CDT Start Date: 03/16/16 Stop Date: 03/16/16 Status: Discontinued Ancef 2 gm, 100 mL, Route: IVPB, Drug form: INJ, ONCE, Dosing Weight 94.5, kg, Start d ate: 03/16/16 8:00:00 CDT, Duration: 1 doses or times, Stop date: 03/16/16 8:00: 00 CDT Notes: Same as: Ancef Start Date: 03/16/16 Stop Date: 03/16/16 Status: Ordered ANES acetaminophen 1,000 mg, Route: IVPB, Drug form: INJ, ONCE, Dosing Weight 94.5, kg, PRN Pain Sc ore 1-3, Start date: 03/16/16 11:20:00 CDT, Duration: 1 doses or times, Stop thi e: Limited # of times Start Date: 03/16/16 Stop Date: 03/16/16 Status: Discontinued ANES fentaNYL 25 microgram, Route: IVP, Q5Min, Dosing Weight 94.5, kg, PRN Pain Score 4-6, Sta rt date: 03/16/16 11:20:00 CDT, Duration: 4 doses or times, Stop date: Limited # of times Start Date: 03/16/16 Stop Date: 03/16/16 Status: Discontinued ANES fentaNYL 50 microgram, Route: IVP, Q5Min, Dosing Weight 94.5, kg, PRN Pain Score 7-10, St art date: 03/16/16 11:20:00 CDT, Duration: 2 doses or times, Stop date: Limited # of times Start Date: 03/16/16 Stop Date: 03/16/16 Status: Completed ANES flumazenil 0.2 mg, Route: IVP, PRN, Dosing Weight 94.5, kg, PRN Benzodiazepine Reversal, In itial dose, Start date: 03/16/16 11:20:00 CDT, Duration: 30 day, Stop date: 03/22 02/03 11:19:00 CDT Start Date: 03/16/16 Stop Date: 03/16/16 Status: Discontinued ANES HYDROmorphone 0.5 mg, Route: IVP, Q5Min, Dosing Weight 94.5, kg, PRN Pain Score 7-10, Start da te: 03/16/16 11:20:00 CDT, Duration: 4 doses or times, Stop date: Limited # of t imes Start Date: 03/16/16 Stop Date: 03/16/16 Status: Discontinued ANES labetalol 10 mg, Route: IVP, Q5Min, Dosing Weight 94.5, kg, PRN Elevated BP, Start date: 0 03/16/16 11:20:00 CDT, Duration: 5 doses or times, Stop date: Limited # of times Start Date: 03/16/16 Stop Date: 03/16/16 Status: Discontinued ANES naloxone 0.4 mg, Route: IVP, Q2MIN, Dosing Weight 94.5, kg, PRN Narcotic Reversal, Start date: 03/16/16 11:20:00 CDT, Duration: 8 doses or times, Stop date: Limited # of times Start Date: 03/16/16 Stop Date: 03/16/16 Status: Discontinued ANES ondansetron 4 mg, Route: IVP, ONCE, Dosing Weight 94.5, kg, PRN Nausea & Vomiting, Start date: 03/16/16 11:20:00 CDT Start Date: 03/16/16 Stop Date: 03/16/16 Status: Completed ANES oxyCODONE 5 mg, Route: PO, Drug form: TAB, Q4H, Dosing Weight 94.5, kg, PRN Pain Score 4-6 , Start date: 03/16/16 11:20:00 CDT, Duration: 30 day, Stop date: 04/15/16 11:19 :00 CDT Start Date: 03/16/16 Stop Date: 03/16/16 Status: Discontinued ANES oxyCODONE 10 mg, Route: PO, Drug form: TAB, Q4H, Dosing Weight 94.5, kg, PRN Pain Score 7- 10, Start date: 03/16/16 11:20:00 CDT, Duration: 30 day, Stop date: 04/15/16 11: 19:00 CDT Start Date: 03/16/16 Stop Date: 03/16/16 Status: Discontinued ceFAZolin (ANES) Route: IV, Drug form: INJ, ONCE, Stop date: 03/16/16 10:20:00 CDT Start Date: 03/16/16 Stop Date: 03/16/16 Status: Completed fentaNYL (ANES) Route: IV, Drug form: INJ, ONCE, Stop date: 03/16/16 10:20:00 CDT Start Date: 03/16/16 Stop Date: 03/16/16 Status: Completed hydromorphone 0.5 mg, Route: IVP, Q3H, Dosing Weight 94.5, kg, PRN Pain Score 4-6, Start date: 03/16/16 11:16:00 CDT, Duration: 30 day, Stop date: 04/15/16 11:15:00 CDT Start Date: 03/16/16 Stop Date: 03/16/16 Status: Discontinued hydromorphone (ANES) Route: IV, Drug form: INJ, ONCE, Stop date: 03/16/16 10:25:00 CDT Start Date: 03/16/16 Stop Date: 03/16/16 Status: Completed Keflex 500 mg oral capsule 500 mg=1 cap, PO, QID, X 10 day, # 40 cap, 0 Refill(s) Start Date: 03/16/16 Stop Date: 03/26/16 Status: Ordered ketOROLAC 30 mg, Route: IVP, Q6H, Dosing Weight 94.5, kg, Start date: 03/16/16 12:00:00 CD T, Duration: 6 doses or times, Stop date: 03/17/16 18:00:00 CDT Start Date: 03/16/16 Stop Date: 03/16/16 Status: Discontinued ketOROLAC (ANES) IV, ONCE Start Date: 03/16/16 Stop Date: 03/16/16 Status: Completed Lactated Ringers Injection IV 1000 mL 1,000 mL, Rate: 25 ml/hr, Infuse over: 40 hr, Route: IV, Dosing Weight 94.5 kg, Total Volume: 1,000, Start date: 03/16/16 7:58:00 CDT, Duration: 30 day, Stop da te: 04/15/16 7:57:00 CDT Start Date: 03/16/16 Stop Date: 03/16/16 Status: Discontinued lidocaine (ANES) Route: IV, Drug form: INJ, ONCE, Stop date: 03/16/16 10:20:00 CDT Start Date: 03/16/16 Stop Date: 03/16/16 Status: Completed LR 1000 mL INJ (ANES) Route: IV, Total Volume: 1,000, Start date: 03/16/16 9:38:00 CDT, Stop date: 10:38:00 CDT Start Date: 03/16/16 Stop Date: 03/16/16 Status: Completed midazolam (ANES) Route: IV, Drug form: SOLN, ONCE, Stop date: 03/16/16 10:10:00 CDT Start Date: 03/16/16 Stop Date: 03/16/16 Status: Completed [place] 7.5/325 oral tablet 1 tab, PO, Q6H, 0 Refill(s) Start Date: 03/09/16 Status: Ordered ondansetron (ANES) Route: IV, Drug form: INJ, ONCE, Stop date: 03/16/16 10:45:00 CDT Start Date: 03/16/16 Stop Date: 03/16/16 Status: Completed propofol (ANES) Route: IV, Drug form: INJ, ONCE, Stop date: 03/16/16 10:20:00 CDT Start Date: 03/16/16 Stop Date: 03/16/16 Status: Completed tramadol 50 mg, Route: PO, Drug form: TAB, Q6H, Dosing Weight 94.5, kg, PRN Pain Score 1- 3, Start date: 03/16/16 11:16:00 CDT, Duration: 30 day, Stop date: 04/15/16 11:1 5:00 CDT Start Date: 03/16/16 Stop Date: 03/16/16 Status: Discontinued Valium 5 mg oral tablet 5 mg=1 tab, PO, QID, PRN Spasm, # 30 tab, 0 Refill(s) Start Date: 03/16/16 Stop Date: 04/16/16 Status: Ordered Results HEMATOLOGY Most recent to 1 oldest [Reference Range]: WBC [3.7-10.4 K/CMM] 6.8 K/CMM (03/09/16 9:05 AM) RBC [4.70-6.10 4.64 M/CMM M/CMM] *LOW* (03/09/16 9:05 AM) Hgb [14.0-18.0 g/dL] 13.9 g/dL *LOW* (03/09/16 9:05 AM) Hct [42.0-54.0 %] 41.2 % *LOW* (03/09/16 9:05 AM) MCV [80.0-94.0 fL] 88.7 fL (03/09/16 9:05 AM) MCH [27.0-31.0 pg] 30.0 pg (03/09/16 9:05 AM) MCHC [32.0-36.0 33.8 g/dL g/dL] (03/09/16 9:05 AM) RDW [11.5-14.5 %] 12.5 % (03/09/16 9:05 AM) Platelet [133-450 202 K/CMM K/CMM] (03/09/16 9:05 AM) MPV [7.4-10.4 fL] 8.4 fL (03/09/16 9:05 AM) Segs [45.0-75.0 %] 63.9 % (03/09/16 9:05 AM) Lymphocytes 24.5 % [20.0-40.0 %] (03/09/16 9:05 AM) Monocytes [2.0-12.0 5.4 % %] (03/09/16 9:05 AM) Eosinophils [0.0-4.0 5.4 % %] *HI* (03/09/16 9:05 AM) Basophils [0.0-1.0 0.8 % %] (03/09/16 9:05 AM) Segs-Bands # 4.4 K/CMM [1.5-8.1 K/CMM] (03/09/16 9:05 AM) Lymphocytes # 1.7 K/CMM [1.0-5.5 K/CMM] (03/09/16 9:05 AM) Monocytes # [0.0-0.8 0.4 K/CMM K/CMM] (03/09/16 9:05 AM) Eosinophils # 0.4 K/CMM [0.0-0.5 K/CMM] (03/09/16 9:05 AM) Basophils # [0.0-0.2 0.1 K/CMM K/CMM] (03/09/16 9:05 AM) Immunizations No data available for this section [...]
--- NOTE | 2019-02-27 07:05 | NUR ---
SPIRITUAL CARE - Pre-Surgery Assessment: Pt in bed. Pt's at bedside. Pt reported supportive attention from family and friends. Intervention: I provided pastoral presence, hospitality, and sympathetic listening. I acquainted pt with availability of roofer vinyl coating while hospitalized. Outcome: Pt expressed appreciation for visit. No need for follow up indicated at this time. S[facility] Spiritual Care Department O: [phone] Pager: [phone])
[2019-02-27 09:30] VITALS: BP 117/81
== END | disposition home or self-care (01) ==
LOC: OR 05:14
PROVIDERS: ATTEND Surgery
DX: K62.5 Hemorrhage of anus and rectum (principal); K57.30 Diverticulosis of large intestine without perforation or abscess without bleeding; K64.5 Perianal venous thrombosis; K21.9 Gastro-esophageal reflux disease without esophagitis; R00.1 Bradycardia, unspecified; Z88.6 Allergy status to analgesic agent; Z01.810 Encounter for preprocedural cardiovascular examination; Z01.812 Encounter for preprocedural laboratory examination
CPT/HCPCS: 36415; 45378; 80048; 85025; 93005; J2001; J2250; J2704; J3010